=== PATIENT | male | born 1960 | race Caucasian/White ===

== ENCOUNTER 2018-06-09 14:43 | Emergency (ER) | payer BC ==
[2018-06-09 15:35] VITALS: BP 128/82
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
--- NOTE | 2018-06-09 17:03 | RAD ---
INDICATION: 60 weeks of right shoulder pain COMPARISON: None. TECHNIQUE: 4 views of the right shoulder were obtained. FINDINGS: The adequately corticated bones are in normal alignment. Mild degenerative changes include mild sclerotic change of the articulating surfaces of the glenohumeral joint as well as marginal osteophyte formation along the inferior margin of the joint. No fracture, dislocation or focal bony abnormality is seen. IMPRESSION: DEGENERATIVE CHANGES DESCRIBED ABOVE WITHOUT RADIOGRAPHICALLY APPARENT ACUTE ABNORMALITY. If the patient's symptoms persist, follow-up imaging is recommended.
== END 2018-06-09 17:16 | disposition home or self-care (01) ==
LOC: UCCORT 14:43
DX: M19.011 Primary osteoarthritis, right shoulder (principal); M75.91 Shoulder lesion, unspecified, right shoulder
CPT/HCPCS: 99211; G0463